=== PATIENT | female | born 1925 | race Caucasian/White ===

== ENCOUNTER 2016-12-29 11:52 | Inpatient (IN) | payer OTHER ==
[~2016-12-29] VITALS: Ht 165.1 cm; Wt 74.9 kg
[~2016-12-29 11:52] MED LIST: AMLODIPINE BESYL5 MG PO; ASPIRIN81 M1 PO; BENEMID500 MG PO; BUMEX1 MG PO; CALTRATE 6001 TABLET PO; CLONAZEPAM0.5 MG PO; DIOVAN320 MG PO; GLIPIZIDE5 M1 PO; HYDROCODONE-AP1 EAC6 PO; LEVOTHYROXINE25 MCG PO; LORAZEPAM0.5 MG PO; LOSARTAN POTAS100 MG PO; NEXIUM40 MG PO; PRAVASTATIN SOD20 MG PO; PROBENECID500 MG PO; VITAMIN D3-ALO1 EACH PO
[2016-12-29 13:23] LABS: CHLORIDE 109 mEq/L (99-109); POTASSIUM 4.9 mEq/L (3.7-5.4); SODIUM 139 mEq/L (136-147)
[2016-12-29 13:24] LABS: GLUCOSE 169 mg/dL (70-99)
[2016-12-29 13:26] LABS: ANION GAP 10 MEQ/L (2-14)
[2016-12-29 13:28] LABS: GFR ESTIMATE (CALCULATED) 32 mL/min/
[2016-12-29 13:29] LABS: UREA NITROGEN (BUN) 43 mg/dL (9-23)
[2016-12-29 13:32] LABS: MCH 30.5 PG (29.0-34.0); MCV 98.4 FL (83-99); MEAN PLAT.VOLUME 10.3 uM^3 (9.5-12.4); PLATELET COUNT 201 K/uL (156-360); RBC DIS.WIDTH-CV 12.9 % (11.8-14.6); RBC DIS.WIDTH-SD 44.7 % (39-53); RED BLOOD COUNT 3.15 M/uL (3.80-5.20); WHITE BLOOD COUNT 7.1 K/uL (4.1-10.2)
[2016-12-29 15:01] LABS: TROP-I INTERPRETATION NEGATIVE; TROPONIN-I < 0.01 ng/mL (0.0-0.30)
[2016-12-29] MEDS ORDERED: PRILOSEC20 MG PO (16:56)
[2016-12-29] MEDS ORDERED: ALEVE220 MG PO (16:57)
[2016-12-29] MEDS ORDERED: VITAMIN D31000 UNIT PO (16:57)
[2016-12-29] MEDS ORDERED: LEVO-T75 MCG PO (16:58)
[2016-12-29] MEDS ORDERED: VENTOLIN HFA18 GM IH (16:59)
[2016-12-29] MEDS ORDERED: APRESOLINE25 MG PO (16:59)
[2016-12-29] MEDS ORDERED: BYSTOLIC20 MG PO (16:59)
[2016-12-29 19:37] VITALS: BP 160/69
[2016-12-29 22:10] LABS: POINT-OF-CARE METER ID UU13113725
[2016-12-29 22:52] VITALS: BP 186/77
[2016-12-30 03:39] VITALS: BP 130/62
[2016-12-30 06:00] LABS: POINT-OF-CARE METER ID UU13113725
[2016-12-30 08:13] VITALS: BP 108/59
[2016-12-30 09:34] LABS: ANION GAP 10 MEQ/L (2-14); CHLORIDE 103 MEQ/L (99-109); GFR ESTIMATE (CALCULATED) 35 mL/min/; GLUCOSE 207 mg/dL (70-99); POTASSIUM 4.9 MEQ/L (3.7-5.4); SAMPLE HEMOLYSIS CHECK 0; SAMPLE ICTERIC CHECK 0; SAMPLE LIPEMIA CHECK 0; SODIUM 136 MEQ/L (136-147); UREA NITROGEN (BUN) 38 mg/dL (9-23)
[2016-12-30 11:32] VITALS: BP 141/65
[2016-12-30 16:38] LABS: POINT-OF-CARE METER ID UU13113725
[2016-12-30 16:45] VITALS: BP 130/54
[2016-12-30 19:16] VITALS: BP 143/63
[2016-12-30 20:52] LABS: POINT-OF-CARE METER ID UU13113725
[2016-12-30 22:30] VITALS: BP 180/77
[2016-12-31 04:38] VITALS: BP 111/56
[2016-12-31 06:45] LABS: ANION GAP 9 MEQ/L (2-14); CHLORIDE 102 MEQ/L (99-109); GFR ESTIMATE (CALCULATED) 35 mL/min/; POTASSIUM 4.3 MEQ/L (3.7-5.4); SAMPLE HEMOLYSIS CHECK 0; SAMPLE ICTERIC CHECK 0; SAMPLE LIPEMIA CHECK 0; SODIUM 137 MEQ/L (136-147); UREA NITROGEN (BUN) 38 mg/dL (9-23)
[2016-12-31 06:47] LABS: GLUCOSE 111 mg/dL (70-99)
[2016-12-31 09:20] VITALS: BP 136/60
[2016-12-31 11:22] LABS: POINT-OF-CARE METER ID UU13113725
[2016-12-31 11:32] VITALS: BP 116/53
== END 2016-12-31 13:10 | disposition home health service (06) | DRG 291 ==
LOC: EME 11:52 → EDOF 17:13 → 5EAST 17:13
PROVIDERS: Internal Medicine
DX: I13.0 Hypertensive heart and chronic kidney disease with heart failure and stage 1 through stage 4 chronic kidney disease, or unspecified chronic kidney disease (principal); I50.41 Acute combined systolic (congestive) and diastolic (congestive) heart failure; J40 Bronchitis, not specified as acute or chronic; J45.909 Unspecified asthma, uncomplicated; N18.3 Chronic kidney disease, stage 3 (moderate); E11.22 Type 2 diabetes mellitus with diabetic chronic kidney disease; G47.33 Obstructive sleep apnea (adult) (pediatric); M10.9 Gout, unspecified; K21.9 Gastro-esophageal reflux disease without esophagitis; M19.90 Unspecified osteoarthritis, unspecified site; Z79.82 Long term (current) use of aspirin; Z88.5 Allergy status to narcotic agent; Z88.2 Allergy status to sulfonamides; Z88.0 Allergy status to penicillin
CPT/HCPCS: 71010; 80048; 82948; 83880; 84484; 85027; 93005; 99202; 99281; 99285; J1650; J1815; J1940